=== PATIENT | female | born 1990 | race Caucasian/White ===

== ENCOUNTER 2024-08-30 23:05 | Emergency (ER) | payer SELFPAY ==
[~2024-08-30] VITALS: Ht 167.6 cm; Wt 91.0 kg
[2024-08-30 23:30] VITALS: O2SAT 100
[2024-08-30] MEDS: LORAZEPAM 2MG/ML INJ IM ONE (23:57)
[2024-08-30] MEDS: DIPHENHYDRAMINE 50MG/ML VIAL IM ONE (23:57)
[2024-08-30] MEDS: HALOPERIDOL LACTATE 5MG/ML VIAL IM ONE (23:57)
[2024-08-31 02:22] LABS: BASOPHILS % 1.2 % (0.0-2.0); EOSINOPHILS % 0.4 % (0.0-5.0); HEMATOCRIT. 38.3 % (36.0-48.0); HEMOGLOBIN. 12.7 g/dL (12.0-16.0); LYMPHOCYTES % 25.7 % (20.0-50.0); MEAN CORPUSCULAR HEMOGLOBIN 30.9 pg (28.0-32.0); MEAN CORPUSCULAR HGB CONC 33.2 g/dL (31.0-37.0); MEAN CORPUSCULAR VOLUME 93.2 fL (81.0-99.0); NEUTROPHILS % 63.7 % (40.0-76.0); PLATELET 313 x1000/uL (130-400); WHITE BLOOD COUNT 10.5 x1000/uL (4.5-11.0)
[2024-08-31 02:33] LABS: CHLORIDE 110 mEq/L (98-107); POTASSIUM 3.1 mEq/L (3.5-5.1); SODIUM 142 mEq/L (136-145)
[2024-08-31 02:34] LABS: CALCIUM 8.4 mg/dL (8.7-10.4); CARBON DIOXIDE 25 mEq/L (21-32)
[2024-08-31 02:39] LABS: CREATININE 0.6 mg/dL (0.6-1.0); GLUCOSE 82 mg/dL (70-105); UREA NITROGEN BLOOD 7 mg/dL (9-23)
[2024-08-31 02:41] LABS: ACETAMINOPHEN < 2 ug/mL (10-30); ALANINE AMINOTRANSFERASE 35 IU/L (10-49); ALBUMIN 3.5 g/dL (3.2-4.8); ASPARTATE AMINOTRANSFERASE 22 IU/L (<34); BILIRUBIN DIRECT 0.2 mg/dL (<=3.0); BILIRUBIN TOTAL 0.5 mg/dL (0.1-1.0); PROTEIN TOTAL 5.9 g/dL (6.0-8.3)
[2024-08-31] MEDS: POTASSIUM CHLORIDE 20MEQ/PACKET PO NR (02:45)
[2024-08-31 03:05] LABS: ETHANOL BLOOD < 10 mg/dL (<10)
[2024-08-31 03:26] LABS: HCG SCREEN NEGATIVE
[2024-08-31 06:19] LABS: *AMPHETAMINES SCREEN URINE PRESUMPTIVE POSITIVE (NEGATIVE); *BARBITURATES SCREEN URINE NEGATIVE (NEGATIVE); *BENZODIAZEPINES SCREEN URINE NEGATIVE (NEGATIVE); *COCAINE SCREEN URINE NEGATIVE (NEGATIVE); CANNABINOID URINE SCREEN PRESUMPTIVE POSITIVE (NEGATIVE); ECSTASY MDMA SCREEN URINE NEGATIVE (NEGATIVE); METHADONE URINE SCREEN NEGATIVE (NEGATIVE); OPIATES URINE SCREEN NEGATIVE (NEGATIVE); PHENCYCLIDINE URINE SCREEN NEGATIVE (NEGATIVE)
[2024-08-31 06:45] LABS: CLARITY URINE CLOUDY (CLEAR); COLOR URINE YELLOW (YELLOW); GLUCOSE URINE NEGATIVE (NEGATIVE); KETONES URINE TRACE (NEGATIVE); PH URINE 6.5 (4.5-8.0); PROTEIN URINE NEGATIVE (NEGATIVE)
[2024-08-31 06:46] LABS: LEUKOCYTE ESTERASE URINE TRACE (NEGATIVE); NITRITE URINE NEGATIVE (NEGATIVE); OCCULT BLOOD URINE NEGATIVE (NEGATIVE); UROBILINOGEN URINE 0.2 E.U./dL (0.2-1.0)
[2024-08-31 07:05] LABS: SQUAMOUS EPITHELIAL CELL URINE 3+ /lpf (RARE/1+)
[2024-08-31 07:06] LABS: RBC URINE 0-2 /hpf (0-2)
[2024-08-31 07:07] LABS: BACTERIA URINE 2+
[2024-08-31 11:00] VITALS: BP 127/86; PULSE 90; RESP 18; O2SAT 99
== END 2024-08-31 12:00 | disposition home or self-care (01) ==
LOC: EDBD 23:19 → ER 23:19
DX: F23 Brief psychotic disorder (principal); E87.6 Hypokalemia; F31.9 Bipolar disorder, unspecified; Z59.00 Homelessness unspecified
CPT/HCPCS: 36415; 96372; 99285; 80076; 80305; 80048; 81003; 80307; 80329; 80320; 84703; 85025; J1200; J1630; J2060; Z7610; A4663; A4606; G0480